=== PATIENT | male | born 1980 | race Caucasian/White ===

== ENCOUNTER → 2019-05-10 | Outpatient (CLI) | payer OTHER ==
[2019-05-10 12:21] LABS: Creatine Kinase 70 U/L (55-170)
[2019-05-10 12:34] LABS: Creatine Kinase MB 0.6 ng/mL (0.0-2.4); Troponin I <0.012 ng/mL (0.000-0.034)
== END | disposition home or self-care (01) ==
LOC: LABWHC1 10:43
PROVIDERS: ATTEND Family Medicine
DX: R07.9 Chest pain, unspecified (principal)
CPT/HCPCS: 36415; 82550; 82553; 84484

== ENCOUNTER → 2019-10-15 | Outpatient (CLI) | payer OTHER | END | disposition home or self-care (01) | LOC: LABWHC1 07:29 | PROVIDERS: ATTEND Family Medicine | DX: Z20.828 Contact with and (suspected) exposure to other viral communicable diseases (principal) | CPT/HCPCS: U0003; C9803 ==

== ENCOUNTER → 2020-01-08 | Outpatient (CLI) | payer OTHER ==
--- NOTE | 2020-01-08 14:48 | MR ---
EXAMINATION TYPE: MR knee RT wo con DATE OF EXAM: 01/08/2020 COMPARISON: Plain film 12/10/2019 HISTORY: R knee pain TECHNIQUE: Multiplanar, multisequence imaging of the right knee is performed without IV contrast. FINDINGS: MEDIAL MENISCUS: Anterior and posterior horns are intact without tear. LATERAL MENISCUS: Anterior and posterior horns are intact without tear. CRUCIATE LIGAMENTS: The anterior and posterior cruciate ligaments are intact and unremarkable. COLLATERAL LIGAMENTS: Fluid signal along the medial collateral ligament could be due to 2 strain, the re is no srinivas tear EXTENSOR MECHANISM: Visualized quadriceps and patellar tendons are intact. EFFUSION: Suprapatellar joint effusion is present POPLITEAL CYST: Semimembranosus gastrocnemius cyst is small, minimal, there may have been rupture of the cyst, there is some fluid signal present along the semimembranosus musculotendinous junction, qu estion some intrinsic abnormal signal TRICOMPARTMENT SPACES: Maintained CARTILAGE: Intact. BONE MARROW SIGNAL: Small focal area of T1 intermediate, T2 bright signal within the proximal tibia a nteriorly the medial compartment likely represents a small geode OTHER: No additional significant abnormality is appreciated. IMPRESSION: Semimembranosus strain distally, findings suggest possible mild muscle tear.
== END | disposition home or self-care (01) ==
LOC: RADMRIMAIN 13:35
PROVIDERS: ATTEND Orthopaedic Surgery
DX: S86.811A Strain of other muscle(s) and tendon(s) at lower leg level, right leg, initial encounter (principal)

== ENCOUNTER 2021-02-15 21:49 | Observation (INO) | payer OTHER ==
--- NOTE | 2021-02-15 21:58 | ED ---
Chest Pain HPI - General Stated Complaint: Chest Pain Time Seen by Provider: 02/15/21 21:49 Source: patient, EMS, RN notes reviewed Mode of arrival: EMS - History of Present Illness Initial Comments: 40-year-old male with no prior history of heart disease or lung disease who states he had the onset about the site of midsternal lower chest pain 8/10 severity dull and achy in nature no radiation. He started driving himself in with his but pain continues to be called EMS was brought in by EMS. He was given 325 mg aspirin since the pain is since he gone at this time it lasted at least 15-20 minutes. No cough no phlegm production he does admit to drinking 3- 4 beers over the weekend no history of ulcers and history of gallbladder disease no cough or phlegm production no family history of heart disease in his age group. Patient does have a history of a right bundle-branch block on his EKG MD Complaint: chest pain - Related Data Home Medications Medication Instructions Recorded Confirmed Calcium Carbonate [Tums] 500 mg PO ACHS PRN 02/15/21 02/15/21 metFORMIN HCL 500 mg PO BID 02/15/21 02/15/21 Previous Rx's Medication Instructions Recorded Ibuprofen [Motrin] 800 mg PO Q6HR PRN #20 tab 12/23/13 Allergies Allergy/AdvReac Type Severity Reaction Status Date / Time No Known Allergies Allergy Verified 02/15/21 22:11 Review of Systems ROS Statement: Those systems with pertinent positive or pertinent negative responses have been documented in the HPI. ROS Other: All systems not noted in ROS Statement are negative. EKG Findings - EKG Results: EKG: interpreted by BEBA, sinus rhythm (Sinus rhythm a 76 IA interval 110 QRS 152 QT/ QTC 386/434. Right bundle-branch block pattern lung with left anterior fascicular block and minimal voltage criteria for LVH) Past Medical History Past Medical History: No Reported History History of Any Multi-Drug Resistant Organisms: None Reported Past Surgical History: No Surgical Hx Reported Past Psychological History: No Psychological Hx Reported Past Alcohol Use History: Occasional Past Drug Use History: None Reported General Exam - General Exam Comments Initial Comments: This is a well-developed well-nourished awake alert oriented 3 male General appearance: alert, in no apparent distress Head exam: Present: atraumatic, normocephalic, normal inspection Eye exam: Present: normal appearance, PERRL, EOMI. Absent: scleral icterus, conjunctival injection, periorbital swelling ENT exam: Present: normal exam, mucous membranes moist Neck exam: Present: normal inspection, full ROM, other (No stridor JVD or bruits). Absent: tenderness, meningismus, lymphadenopathy Respiratory exam: Present: normal lung sounds bilaterally. Absent: respiratory distress, wheezes, rales, rhonchi, stridor, chest wall tenderness Cardiovascular Exam: Present: regular rate, normal rhythm, normal heart sounds. Absent: systolic murmur, diastolic murmur, rubs, gallop, clicks GI/Abdominal exam: Present: soft, normal bowel sounds. Absent: distended, tenderness, guarding, rebound, rigid, bruit, pulsatile mass Extremities exam: Present: normal inspection, full ROM, normal capillary refill. Absent: tenderness, pedal edema, joint swelling, calf tenderness Back exam: Present: normal inspection Neurological exam: Present: alert, oriented X3, CN II-XII intact Psychiatric exam: Present: normal affect, normal mood Skin exam: Present: warm, dry, intact, normal color. Absent: rash Course Vital Signs 02/15/21 02/15/21 21:55 21:58 Temperature 98.6 F Pulse Rate 86 73 Respiratory 16 16 Rate Blood Pressure 149/90 131/91 O2 Sat by Pulse 97 96 Oximetry Chest Pain MDM - MDM Imaging reviewed no acute findings. Case was discussed with the patient and his Dr. Garrett presentation is suspicious for ACS ischemia patient will be admitted with cardiology consultation Disposition Clinical Impression: Chest pain, Unstable angina pectoris, Abnormal EKG Disposition: ADMITTED IP TO THIS HOSP Condition: Stable Referrals: Jun Garrett DO [Primary Care Provider] - 1-2 days
[2021-02-15 22:01] VITALS: TEMP 98.6
[2021-02-15 22:17] LABS: Basophils % (A) 1 %; Eosinophils # (A) 0.1 k/uL (0-0.7); Eosinophils % (A) 3 %; HCT 44.5 % (39.0-53.0); HGB 15.4 gm/dL (13.0-17.5); Lymphocytes % (A) 40 %; MCH 30.9 pg (25.0-35.0); MCHC 34.7 g/dL (31.0-37.0); MCV 89.1 fL (80.0-100.0); Mean Platelet Volume 7.7; Monocytes # (A) 0.3 k/uL (0-1.0); Monocytes % (A) 6 %; Neutrophils # (A) 2.3 k/uL (1.3-7.7); Neutrophils % (A) 47 %; Platelet Count 206 k/uL (150-450); RBC 4.99 m/uL (4.30-5.90); RDW 12.8 % (11.5-15.5); WBC 4.9 k/uL (3.8-10.6)
--- NOTE | 2021-02-15 22:19 | XR ---
EXAMINATION TYPE: XR chest 2V DATE OF EXAM: 02/15/2021 COMPARISON: NONE HISTORY: Chest pain TECHNIQUE: 2 views FINDINGS: Heart and mediastinum are normal. Lungs are clear. Diaphragm is normal. Bony thorax is inta ct. IMPRESSION: Normal chest.
[2021-02-15 22:34] LABS: ALT 45 U/L (4-49); AST 29 U/L (17-59); African American GFR (CKD) >90 (>60 ml/min/1.73 sqM); Albumin 3.9 g/dL (3.5-5.0); Alkaline Phosphatase 77 U/L (38-126); Anion Gap 8 mmol/L; Blood Urea Nitrogen 13 mg/dL (9-20); Carbon Dioxide 27 mmol/L (22-30); Chloride 100 mmol/L (98-107); Glucose 452 mg/dL (74-99); Lipase 105 U/L (23-300); Magnesium 1.8 mg/dL (1.6-2.3); Non-African American GFR(CKD) >90 (>60 ml/min/1.73 sqM); Potassium 4.6 mmol/L (3.5-5.1); Sodium 135 mmol/L (137-145); Total Bilirubin 0.4 mg/dL (0.2-1.3); Total Protein 6.5 g/dL (6.3-8.2)
[2021-02-15 22:48] LABS: INR 0.9 (<1.2); Partial Thromboplastin Time 22.5 sec (22.0-30.0); Prothrombin Time 10.1 sec (9.0-12.0)
[2021-02-15] MEDS ORDERED: SODIUM CHLORIDE 0.9% 1,000 ML IV STA (23:11)
[2021-02-15] MEDS ORDERED: NITROGLYCERIN SL TABS 0.4 MG TAB SUBLINGUAL PRN (23:18)
[2021-02-15] MEDS ORDERED: CALCIUM CARBONATE 500 MG CHEWABLE PO PRN (23:20)
[2021-02-15] MEDS ORDERED: IBUPROFEN 800 MG TAB PO PRN (23:20)
[2021-02-15] MEDS ORDERED: INSULIN REGULAR 100 UNIT/ML VIAL (IM/SQ) SQ ONE (23:21)
[2021-02-16 00:18] LABS: Glucose,Whole Blood 374 mg/dL (75-99)
[2021-02-16] MEDS: SODIUM CHLORIDE 0.9% 1,000 ML IV SCH ×2 (00:21→11:34)
[2021-02-16 03:07] VITALS: BP 124/84
[2021-02-16 06:46] VITALS: PULSE 65; RESP 18
[2021-02-16 07:30] LABS: Glucose,Whole Blood 226 mg/dL (75-99)
[2021-02-16] MEDS ORDERED: INSULIN ASPART (NovoLOG) 100 UNIT/ML VIAL SQ SCH (07:30)
[2021-02-16 08:53] LABS: HCT 43.2 % (39.0-53.0); HGB 14.8 gm/dL (13.0-17.5); MCH 30.3 pg (25.0-35.0); MCHC 34.3 g/dL (31.0-37.0); MCV 88.3 fL (80.0-100.0); Mean Platelet Volume 8.8; Platelet Count 216 k/uL (150-450); RBC 4.89 m/uL (4.30-5.90); RDW 12.9 % (11.5-15.5); WBC 5.4 k/uL (3.8-10.6)
[2021-02-16] MEDS ORDERED: ASPIRIN 325 MG TAB PO SCH (09:00)
[2021-02-16] MEDS ORDERED: INSULIN DETEMIR (LEVEMIR) 100 UNIT/ML SYR SQ SCH (09:00)
[2021-02-16] MEDS ORDERED: metFORMIN 500 MG TAB PO SCH (09:00)
[2021-02-16] MEDS ORDERED: PANTOPRAZOLE 40 MG/10 ML VIAL IVP SCH (09:00)
--- NOTE | 2021-02-16 09:23 | P.CRDCN ---
History of Present Illness Consult date: 02/16/21 History of present illness: HISTORY OF PRESENT ILLNESS: This is a 40-year-old male with a past medical history significant for diabetes and hyperlipidemia. Patient follows in the office with Dr. Toth. We have been asked to see the patient in consultation for chest pain. Patient examined at the bedside. Patient states yesterday after eating dinner he began having discomfort in the middle of his chest. He reports feeling mildly short of breat h. Patient states the pain lasted for approximately 30 minutes and was not resolving so he decided to drive himself to the emergency room. In route to the emergency room he decided to drum puller as the pain was getting worse. He states he got out of the car and walked around for a little bit and the pain did get a little bit better. EMS arrived and then brought the patient to the hospital. He does report having 4 baby aspirin en route to the hospital. The patient currently denies chest pain or pressure. He denies shortness of breath. The patient is a nonsmoker. He denies a family history of coronary artery disease. The patient does have a history of hyperlipidemia but states he does not take any cholesterol medication. When asked the reason he said "I don't have a good answer for you. I just don't". EKG reveals sinus mechanism with right bundle-branch block. Left anterior fas cicular block. Similar to previous EKG. Chest xray negative for acute process Laboratory data: WBC 5.4. Hemoglobin 14.8. Platelet count 216. D-dimer 0.17. Sodium 135. Potassium 4.6. BUN 13. Creatinine 0.90. Glucose 452. Troponin negative 3. Current home cardiac medications include none Most recent echocardiogram obtained in June 2019 revealed ejection fraction 50- 55%, mild mitral regurgitation, mild tricuspid regurgitation, and mild aortic regurgitation Patient underwent stress echocardiogram in June 2019 which was negative for reversible ischemia REVIEW OF SYSTEMS: At the time of my exam: CONSTITUTIONAL: Denies fever or chills. HEENT: Denies blurred vision, vision changes, or eye pain. Denies hemoptysis CARDIOVASCULAR: Denies chest pain. Denies orthopnea. Denies PND. Denies palpitations RESPIRATORY: Denies shortness of breath. GASTROINTESTINAL: Denies abdominal pain. Denies nausea or vomiting. HEMATOLOGIC: Denies bleeding disorders. GENITOURINARY: Denies any blood in urine. SKIN: Denies pruitis. Denies rash. PHYSICAL EXAM: VITAL SIGNS: Reviewed. GENERAL: Well-developed in no acute distress. HEENT: Head is normocephalic. Pupils are equal, round. Sclerae anicteric. Mucous membranes of the mouth are moist. Neck supple. No JVD or thyromegaly LUNGS: Respirations even and unlabored. Lungs essentially clear to auscultation bilaterally. HEART: Regular rate and rhythm. S1 and S2 heard. ABDOMEN: Soft. Nondistended. Nontender. EXTREMITIES: Normal range of motion. No clubbing or cyanosis. Peripheral pulses intact. No lower extremity edema NEUROLOGIC: Awake and alert. Oriented x 3. ASSESSMENT: Chest pain, atypical, troponin negative x 3 Diabetes Hyperglycemia, blood glucose 452 on admission Hyperlipidemia, not on statin therapy per patient choice PLAN: An acute coronary event has been ruled out Recommend statin therapy. Will begin 20mg at HS. Check lipid panel. Obtain 2D echo to assess cardiac structure and function Patient to undergo stress echocardiogram today. If negative, he may be discharged home today and follow up outpatient with Dr. Toth Nurse practitioner note has been reviewed by physician. Signing provider agrees with the documented findings, assessment, and plan of care. Past Medical History Past Medical History: No Reported History History of Any Multi-Drug Resistant Organisms: None Reported Past Surgical History: No Surgical Hx Reported Past Psychological History: No Psychological Hx Reported Past Alcohol Use History: Occasional Past Drug Use History: None Reported Medications and Allergies Home Medications Medication Instructions Recorded Confirmed Type Ibuprofen [Motrin] 800 mg PO Q6HR PRN #20 tab 12/23/13 02/15/21 Rx Calcium Carbonate [Tums] 500 mg PO ACHS PRN 02/15/21 02/15/21 History metFORMIN HCL 500 mg PO BID 02/15/21 02/15/21 History Allergies Allergy/AdvReac Type Severity Reaction Status Date / Time No Known Allergies Allergy Verified 02/15/21 22:11 Physical Exam Vitals: Vital Signs Temp Pulse Resp BP Pulse Ox 02/16/21 06:45 65 18 97 02/16/21 05:00 67 20 97 02/16/21 02:00 76 20 124/84 96 02/15/21 23:38 75 16 137/76 97 02/15/21 21:58 73 16 131/91 96 02/15/21 21:55 98.6 F 86 16 149/90 97 Intake and Output 02/15/21 02/16/21 02/16/21 22:59 06:59 14:59 Other: Weight 81.647 kg Results 02/16/21 04:05 02/15/21 22:06 Cardiac Enzymes 02/15/21 02/15/21 02/16/21 Range/Units 22:06 22:06 01:00 AST 29 (17-59) U/L Troponin I <0.012 <0.012 (0.000-0.034) ng/mL 02/16/21 Range/Units 04:05 AST (17-59) U/L Troponin I <0.012 (0.000-0.034) ng/mL Coagulation 02/15/21 Range/Units 22:06 PT 10.1 (9.0-12.0) sec APTT 22.5 (22.0-30.0) sec CBC 02/15/21 02/16/21 Range/Units 22:06 04:05 WBC 4.9 5.4 (3.8-10.6) k/uL RBC 4.99 4.89 (4.30-5.90) m/uL Hgb 15.4 14.8 (13.0-17.5) gm/dL Hct 44.5 43.2 (39.0-53.0) % Plt Count 206 216 (150-450) k/uL Comprehensive Metabolic Panel 02/15/21 Range/Units 22:06 Sodium 135 L (137-145) mmol/L Potassium 4.6 (3.5-5.1) mmol/L Chloride 100 (98-107) mmol/L Carbon Dioxide 27 (22-30) mmol/L BUN 13 (9-20) mg/dL Creatinine 0.90 (0.66-1.25) mg/dL Glucose 452 H (74-99) mg/dL Calcium 9.0 (8.4-10.2) mg/dL AST 29 (17-59) U/L ALT 45 (4-49) U/L Alkaline Phosphatase 77 (38-126) U/L Total Protein 6.5 (6.3-8.2) g/dL Albumin 3.9 (3.5-5.0) g/dL Current Medications Generic Name Dose Route Start Last Admin Trade Name Freq PRN Reason Stop Dose Admin Aspirin 325 mg 02/16/21 09:00 Aspirin 325 Mg Tab PO DAILY CLAUS Calcium Carbonate/Glycine 500 mg 02/15/21 23:20 Calcium Carbonate 500 Mg Chewable PO ACHS PRN GI Upset Sodium Chloride 1,000 mls @ 100 mls/hr 02/15/21 23:30 02/16/21 00:21 Saline 0.9% IV 100 mls/hr .Q10H CLAUS Administration Ibuprofen 800 mg 02/15/21 23:20 Ibuprofen 800 Mg Tab PO Q6HR PRN Pain Insulin Aspart 0 unit 02/16/21 07:30 Insulin Aspart (Novolog) 100 Unit/Ml Vial SQ ACHS [facility] Protocol Insulin Detemir 25 unit 02/16/21 09:00 Insulin Detemir (Levemir) 100 Unit/Ml Syr SQ DAILY@0700 [facility] Nitroglycerin 0.4 mg 02/15/21 23:18 Nitroglycerin Sl Tabs 0.4 Mg Tab SUBLINGUAL Q5M PRN Chest Pain Pantoprazole Sodium 40 mg 02/16/21 09:00 Pantoprazole 40 Mg/10 Ml Vial IVP DAILY [facility] Intake and Output 02/15/21 02/16/21 02/16/21 22:59 06:59 14:59 Other: Weight 81.647 kg 02/16/21 04:05 02/15/21 22:06
--- NOTE | 2021-02-16 10:01 | ECHOF ---
Referral Reason:In a.m. MEASUREMENTS -------- HEIGHT: 175.3 cm WEIGHT: 81.6 kg BP: 124/84 IVSd: 1.3 cm (0.6 - 1.1) LVIDd: 5.0 cm (3.9 - 5.3) LVPWd: 1.1 cm (0.6 - 1.1) IVSs: 1.6 cm LVIDs: 3.1 cm LVPWs: 1.8 cm LAESV Index (A-L): 18.98 ml/m Ao Diam: 3.2 cm (2.0 - 3.7) AV Cusp: 1.9 cm (1.5 - 2.6) LA Diam: 3.2 cm (2.7 - 3.8) MV EXCURSION: 18.162 mm (> 18.000) MV EF SLOPE: 45 mm/s (70 - 150) EPSS: 0.7 cm MV E Edi: 0.93 m/s MV DecT: 191 ms MV A Edi: 0.64 m/s MV E/A Ratio: 1.46 RAP: 3.00 mmHg RVSP: 26.63 mmHg FINDINGS -------- Sinus rhythm. This was a technically adequate study. The left ventricular size is normal. There is mild concentric left ventricular hypertrophy. Overa ll left ventricular systolic function is normal with, an EF between 55 - 60 %. The diastolic fillin g pattern is normal for the age of the patient 13.56. The right ventricle is normal in size. Normal LA size by volume 22+/-6 ml/m2. The right atrial size is normal. Interatrial and interventricular septum intact. The aortic valve is trileaflet and appears structurally normal. There is no evidence of aortic regu rgitation. There is no evidence of aortic stenosis. No mitral regurgitation. Mild tricuspid regurgitation present. There is no evidence of pulmonary hypertension. The right v entricular systolic pressure, as measured by Doppler, is 26.63mmHg. There is no pulmonic regurgitation present. The aortic root size is normal. IVC Not well visulized. There is no pericardial effusion. CONCLUSIONS -------- 1. The left ventricular size is normal. 2. There is mild concentric left ventricular hypertrophy. 3. Overall left ventricular systolic function is normal with, an EF between 55 - 60 %. 4. The diastolic filling pattern is normal for the age of the patient 13.56 5. Mild tricuspid regurgitation present. EDITING COMPUTER PUBLISHER: Leigha Zuniga RDCS
--- NOTE | 2021-02-16 10:44 | P.STRESS ---
- Stress Test Note Stress Test Results/Findings: Exam Performed: stress echo exercise Exam Date: 02/16/21 Reason for Exam: CP Height: 5 ft 9 in Weight: 81.65 kg Protocol: STRESS ECHO EXERCISE Stage: 4 Duration of Exercise: 9:46 Resting Heart Rate: 85 Resting Blood Pressure: 123/82 Maximum Achieved Heart Rate: 163 Maximum Achieved Blood Pressure: 178/85 85% PMHR: 152 100% PMHR: 179 METS: 11.3 Technologist Comment: Stress Test Results/Findings: Patient underwent exercise stress echo with a Gerhard protocol treadmill stress test. Patient exercised into Stage 3 for a total of 9 minutes and 46 seconds reaching a total of 11.3 METS. Patient's maximum heart rate was 163 which represented 91% age-predicted maximum heart rate. Stress EKG portion: At baseline patient's EKG showed normal sinus rhythm, right bundle branch block, no significant ST or T wave abnormalities. At peak exercise, EKG showed no significant change from baseline. Stress echo portion: 2-D echocardiogram was performed in the parasternal long, personal short, apical 2 and apical four-chamber views at rest, peak exercise and in recovery. At baseline, echocardiogram showed left ventricular ejection fraction 55% without wall motion abnormalities. With peak exercise, echocardiogram shows improvement in left ventricular ejection fraction, increase contractility, decrease in left ventricular end systolic dimension without wall motion abnormalities consistent with a normal response to exercise. Conclusions: 1. Normal EKG and echo response to exercise without evidence of inducible ischemia. 2. Good exercise capacity.
--- NOTE | 2021-02-16 11:45 | US ---
EXAMINATION TYPE: US gallbladder DATE OF EXAM: 02/16/2021 COMPARISON: NONE CLINICAL HISTORY: Midepigastric pain rad RUQ abd, r shoulder. epigastric pain. patient not NPO, ate 2 -3 hours before exam EXAM MEASUREMENTS: Liver Length: 16.6 cm Gallbladder Wall: 0.2 cm Right Kidney: 12.8 x 4.6 x 4.5 cm technical limitations due to large amount of overlying bowel content Pancreas: Obscured by bowel gas Liver: attenuating, heterogeneous Gallbladder: possible small stones Evidence for sonographic Serna's sign: no CBD: Obscured by overlying bowel gas Right Kidney: no evidence of hydronephrosis Suboptimal evaluation of pancreas on initial images. Visualized liver is diffusely hyperechoic. No in trahepatic ductal dilatation. Evaluation for focal masses suboptimal due to the heterogeneity. Gallbl adder not well distended with nonshadowing hyperechoic focus could reflect intraluminal gallstone. No abnormal wall thickening. Sonographic Serna sign negative. No right-sided hydronephrosis. IMPRESSION: Suboptimal study. Possible intraluminal gallstone. No secondary ultrasound evidence for a cute cholecystitis. Heterogeneous hyperechoic appearance of liver consistent with diffuse fatty infil tration and/or underlying hepatocellular disease.
[2021-02-16 12:31] LABS: Glucose,Whole Blood 265 mg/dL (75-99)
[2021-02-16 16:27] LABS: African American GFR (CKD) 130.5 (60.0-200.0); Anion Gap 13.5 mmol/L (4.00-12.00); BUN/Creat Ratio 15.41 Ratio (12.00-20.00); Blood Urea Nitrogen 11.9 mg/dL (9.0-27.0); Calcium 8.8 mg/dL (8.7-10.3); Carbon Dioxide 21.6 mmol/L (21.6-31.8); Non-African American GFR(CKD) 112.6 (60.0-200.0); Potassium 4.2 mmol/L (3.5-5.5)
[2021-02-16 16:31] LABS: LDL Cholesterol,Calculated 180.2 mg/dL (0.0-131.0)
[2021-02-16] MEDS ORDERED: ATORVASTATIN 10 MG TAB PO SCH (21:00)
[2021-02-16] MEDS ORDERED: ATORVASTATIN 20 MG TAB PO SCH (21:00)
--- NOTE | 2021-02-18 15:29 | P.HPIM ---
History of Present Illness H&P Date: 02/16/21 Chief Complaint: Chest pain History and Physical and Discharge summary This is a 40-year-old gentleman admitted with substernal, more mid epigastric chest pain, radiating across right and left upper abdominal quadrants lasting approximately half an hour. Reports chest pain occurred after he had just finished eating dinner, chop suey, felt bloated with inability to burp. Denies fever, chills, congestion or cough. Recent echo June 2019 reported EF 5055%. Coronavirus not detected. EKG reporting sinus rhythm with right bundle branch block-both patient and significant other states was present previously. Hematology panel unremarkable, electrolytes within normal limits, renal function stable, Troponins negative 3 Blood sugars 452 on admission, acetone negative. Afebrile, normal WBC. Maintaining O2 sats in the high 90s on room air. Chest x-ray reported normal. Gallbladder ultrasound suboptimal study, possible intraluminal gallstone with no secondary evidence for acute cholecystitis, heterogenous hyperechogenic appearance of liver consistent with diffuse fatty infiltration and or underlying hepatocellular disease. Review of Systems ROS Statement: Those systems with pertinent positive or pertinent negative responses have been documented in the HPI. ROS Other: All systems not noted in ROS Statement are negative. Past Medical History Past Medical History: No Reported History History of Any Multi-Drug Resistant Organisms: None Reported Past Surgical History: No Surgical Hx Reported Past Psychological History: No Psychological Hx Reported Past Alcohol Use History: Occasional Past Drug Use History: None Reported Medications and Allergies Home Medications Medication Instructions Recorded Confirmed Type Ibuprofen [Motrin] 800 mg PO Q6HR PRN #20 tab 12/23/13 02/15/21 Rx Calcium Carbonate [Tums] 500 mg PO ACHS PRN 02/15/21 02/15/21 History Atorvastatin Calcium [Lipitor] 10 mg PO HS #90 tab 02/16/21 Rx Insulin Glargine [Lantus Vial] 20 unit SQ DAILY #10 ml 02/16/21 Rx Syringe-Needle,Insulin,0.5 ml 1 syr SQ DIRECTED 30 Days #30 02/16/21 Rx [Insulin Syringe 30G 5/" 1/2 ml] each Allergies Allergy/AdvReac Type Severity Reaction Status Date / Time No Known Allergies Allergy Verified 02/15/21 22:11 Physical Exam PHYSICAL EXAM: VITAL SIGNS: As above GENERAL: Sitting up in bed, no acute distress HEENT: Conjunctivae normal. eyes normal. NECK: No JVD. No thyroid enlargement. No LNs CARDIOVASCULAR: S1, S2 regular. No murmur RESPIRATION: Breath sounds diminished in the bases. No rhonchi or crackles. No bronchial breathing. ABDOMEN: Soft, nontender . No guarding. no masses palpable. No ascites, No hepatosplenomegaly.Bowel sounds heard. LEGS: No edema. no swelling PSYCHIATRY: Alert and oriented X3, mood and affect normal. NERVOUS SYSTEM: Cranial N 2-12 grossly normal. Moves all 4 limbs. No focal deficits. Strength and sensation grossly intact.. Skin: no lesions, no rash Results CBC & Chem 7: 02/16/21 04:05 02/16/21 04:05 Assessment and Plan Assessment: Chest pain, troponin is negative 3, acute coronary event ruled out as per cardiology Diabetes mellitus, hyperglycemic, noncompliant with medical regimen. Hemoglobin A1c 12.8. Further diabetic education at PCPs office. Hyperlipidemia Fatty liver Plan: Continue on current medication regime ,monitoring and symptomatic treatment. Cardiology consult in place, stress echo pending. Patient will be discharged home in a stable condition pending final DC recommendations and clearance per cardiology. Lantus insulin initiated. Patient advised to maintain log of Accu-Cheks and take to follow-up visit in clinic for further recommendations. Discharge Medication List Ibuprofen [Motrin] 800 mg PO Q6HR PRN #20 tab 12/23/13 [Rx] Calcium Carbonate [Tums] 500 mg PO ACHS PRN 02/15/21 [History] Atorvastatin Calcium [Lipitor] 10 mg PO HS #90 tab 02/16/21 [Rx] Insulin Glargine [Lantus Vial] 20 unit SQ DAILY #10 ml 02/16/21 [Rx] Syringe-Needle,Insulin,0.5 ml [Insulin Syringe 30G 08/16" 1/2 ml] 1 syr SQ DIRECTED 30 Days #30 each 02/16/21 [Rx] The impression and plan of care has been dictated as directed. : I performed a history and examination of this patient, discussed the same with the dictator. I agree with the dictator's note ,documented as a scribe. Any additional findings or plans will be noted.
== END 2021-02-16 12:58 | disposition home or self-care (01) ==
LOC: EC 21:49 → 6NMEDSUR 23:18
PROVIDERS: ADMIT Family Medicine; ATTEND Family Medicine
DX: R07.89 Other chest pain (principal); E11.65 Type 2 diabetes mellitus with hyperglycemia; I45.2 Bifascicular block; I07.1 Rheumatic tricuspid insufficiency; E78.5 Hyperlipidemia, unspecified; K76.0 Fatty (change of) liver, not elsewhere classified; Z91.14 Patient's other noncompliance with medication regimen; Z20.822 Contact with and (suspected) exposure to COVID-19; Z79.84 Long term (current) use of oral hypoglycemic drugs; Z79.899 Other long term (current) drug therapy
CPT/HCPCS: 96360; 99285; 36415; 93005 ×2; 93306; 93351; 85379; 80061; 80053; 80048; 82009; 83690; 83735 ×2; 84484 ×2; 85025; 85027; 85610; 85730; 83036; 87635; 71046; 76705; G0378 ×2

== ENCOUNTER → 2023-05-08 | Outpatient (CLI) | payer OTHER ==
--- NOTE | 2023-05-08 21:36 | CT ---
EXAMINATION TYPE: CT facial bones wo con CT DLP: 703.7 mGycm, Automated exposure control for dose reduction was used. DATE OF EXAM: 05/08/2023 6:36 PM COMPARISON: None. 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 Coronal, axial and sagittal reformatted images were also provided in soft tissue and bone windows and submitted for interpretation. Contrast used: mL of , (none if empty) Oral contrast used: (none if empty) FINDINGS: Mild temporal mandibular joint space narrowing with minimal osteophytes. The joints are sym metric. No evidence for joint effusion. No evidence for direct fracture. No evidence for subluxation. Elongated styloid processes bilaterally. There is no evidence of fracture, subluxation, dislocation, or significant soft tissue swelling. The orbital contents are unremarkable.The visualized portion of the paranasal sinuses appear clear. IMPRESSION: Symmetric appearance of the temporomandibular joints. No evidence for fracture. Mild degeneration latosha nges of the temporomandibular joints..
== END | disposition home or self-care (01) ==
LOC: RADCTMAIN 18:22
PROVIDERS: ATTEND Otolaryngology
DX: M26.649 Arthritis of unspecified temporomandibular joint (principal); M26.629 Arthralgia of temporomandibular joint, unspecified side
CPT/HCPCS: 70486